=== PATIENT | female | born 1970 | race Caucasian/White ===

== ENCOUNTER → 2016-03-15 | Day surgery (SDC) | payer BC ==
[~2016-03-15] MED LIST: BUPIVACAINE/EPINEPHRINE 0.25% PF 30 ML VIAL ONE; KETOROLAC TROMETHAMINE 30 MG/ML (IVP) VIAL IV PUSH ONE; LACTATED RINGER'S 1000 ML INJ 1,000 ML ONE; MIDAZOLAM HCL 2 MG/2 ML VIAL ONE; NEOMYCIN/POLYMYXIN/BACITRACIN OINT 15 GM TUBE ONE; ONDANSETRON HCL 4 MG/2 ML VIAL IV PUSH ONE; OYST500T77 PO; PROPOFOL 200 MG/20 ML AMP IV ONE; TAB-TAB PO; [UNRECOGNIZED DRUG - REMARK]; ceFAZolin 2 GM PREMIX 50 ML ONE
--- NOTE | 2016-03-15 11:24 | TN ---
cc: EZEKIEL RUBY M.D. DATE OF SURGERY 03/15/2016 PREOPERATIVE DIAGNOSIS Symptomatic chronically incarcerated small umbilical hernia. POSTOPERATIVE DIAGNOSES 1. Symptomatic chronically incarcerated small umbilical hernia. 2. Chronically incarcerated omentum. PROCEDURE PERFORMED Open primary umbilical hernia repair with resection of incarcerated omentum. SURGEON Ezekiel Ruby MD ANESTHESIA General LMA. COMPLICATIONS None. INDICATIONS FOR PROCEDURE Ms. Garcia is a pleasant 45-year-old female who had a symptomatic umbilical hernia. It was quite tender to touch. It was chronically out and nonreducible. The patient was seen, evaluated and offered elective repair. Risks and benefits of repair were discussed with her and she was agreeable. DETAILS The patient was identified, brought to the operating room, placed supine on the operating room table. After adequate general anesthesia was achieved with LMA, the anterior abdomen was prepped and draped in standard surgical fashion. 0.25% Marcaine was injected around the umbilicus. A periumbilical incision was then made. Dissection was carried around circumferentially, around the umbilical stalk. Hernia sac was immediately identified. It was carefully dissected off the umbilical stalk. Hernia sac was opened and found to contain omentum. Omentum was fairly large and unable to be reduced through the small fascial defect. We therefore transected the omentum with the electrocautery Bovie. Distal omentum was discarded. The proximal omentum then retracted back into the abdominal cavity. The fascial defect was fairly small, about 1-2 cm in diameter. It was dissected circumferentially. Because it was small, we elected to close it primarily. The umbilical defect was closed primarily using a 0 Prolene suture interrupted x 3. With this the defect was completely closed and under no tension. Tissue quality was good. The wound was copiously irrigated with normal saline solution. The umbilical stalk was then tacked down to the abdominal wall fascia using a 3-0 Vicryl suture. Subcutaneous tissue was reapproximated with 3-0 Vicryl and the skin was closed with 4-0 Vicryl. The patient tolerated the procedure well, was awakened and brought to Recovery in stable condition. MD JOSE Garsia/SADE /11:07 AM /11:14 AM
== END | disposition home or self-care (01) ==
LOC: ESDC 07:57
PROVIDERS: ATTEND Surgery Trauma Surgery
DX: K42.0 Umbilical hernia with obstruction, without gangrene (principal)
CPT/HCPCS: 00750; 49587; J0690; J1885; J2250; J2405; J3010; J7120

== ENCOUNTER 2017-02-10 20:13 | Emergency (ER) | payer BC ==
[~2017-02-10] VITALS: Ht 165.1 cm; Wt 82.0 kg
[~2017-02-10 20:13] MED LIST changes: -BUPIVACAINE/EPINEPHRINE 0.25% PF 30 ML VIAL ONE; -KETOROLAC TROMETHAMINE 30 MG/ML (IVP) VIAL IV PUSH ONE; -LACTATED RINGER'S 1000 ML INJ 1,000 ML ONE; -MIDAZOLAM HCL 2 MG/2 ML VIAL ONE; -NEOMYCIN/POLYMYXIN/BACITRACIN OINT 15 GM TUBE ONE; -ONDANSETRON HCL 4 MG/2 ML VIAL IV PUSH ONE; -PROPOFOL 200 MG/20 ML AMP IV ONE; -ceFAZolin 2 GM PREMIX 50 ML ONE
[2017-02-10 20:22] VITALS: BP 112/73; PULSE 104; RESP 20; TEMP 98.5; O2SAT 97
[2017-02-10] MEDS ORDERED: SODIUM CHLOR 0.9% 1000 ML INJ 1,000 ML IV ONE (20:45)
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
[2017-02-10 22:09] LABS: AUTOMATED NEUTROPHIL # 7.1 TH/MM3 (1.8-7.7); BASOPHIL # 0.1 TH/MM3 (0-0.2); BASOPHIL % 0.8 % (0.0-2.0); EOSINOPHIL # 0.5 TH/MM3 (0-0.4); EOSINOPHIL % 4.8 % (0.0-4.0); HEMATOCRIT 46.9 % (35.0-46.0); HEMOGLOBIN 16.2 GM/DL (11.6-15.3); LYMPH % 25.9 % (9.0-44.0); LYMPHOCYTE # 2.9 TH/MM3 (1.0-4.8); MEAN CORPUSCULAR HEMOGLOBIN 33.2 PG (27.0-34.0); MEAN CORPUSCULAR HGB CONC 34.6 % (32.0-36.0); MEAN PLATELET VOLUME 8.7 FL (7.0-11.0); MONOCYTE # 0.6 TH/MM3 (0-0.9); NEUT % 63.5 % (16.0-70.0); PLATELET COUNT 320 TH/MM3 (150-450); RED BLOOD COUNT 4.88 MIL/MM3 (4.00-5.30); RED CELL DISTRIBUTION WIDTH 13.8 % (11.6-17.2); WHITE BLOOD COUNT 11.1 TH/MM3 (4.0-11.0)
[2017-02-10 22:50] LABS: ALKALINE PHOSPHATASE 91 U/L (45-117); TOTAL BILIRUBIN ADULT 0.4 MG/DL (0.2-1.0); TOTAL PROTEIN 8.8 GM/DL (6.4-8.2)
[2017-02-10 22:54] LABS: ALBUMIN 4.3 GM/DL (3.4-5.0); ALT (GPT) 30 U/L (10-53); AST (GOT) 38 U/L (15-37); BICARBONATE 24.5 MEQ/L (21.0-32.0); BLOOD UREA NITROGEN 15 MG/DL (7-18); CALCIUM 9.4 MG/DL (8.5-10.1); CHLORIDE 103 MEQ/L (98-107); CREATININE 0.74 MG/DL (0.50-1.00); GLOMERULAR FILTRATION RATE 84 ML/MIN (>89); GLUCOSE,RANDOM 80 MG/DL (74-106); SODIUM (NA) 139 MEQ/L (136-145)
[2017-02-10 22:56] LABS: ACETAMINOPHEN LESS THAN 2.0 MCG/ML (10.0-30.0)
== END 2017-02-11 00:37 | disposition home or self-care (01) ==
LOC: NEPC 20:13
DX: T42.4X2A Poisoning by benzodiazepines, intentional self-harm, initial encounter (principal); F10.129 Alcohol abuse with intoxication, unspecified; F17.200 Nicotine dependence, unspecified, uncomplicated; Z79.899 Other long term (current) drug therapy
CPT/HCPCS: 80053; 80307; 85025; 99284; J7030